=== PATIENT | male | born 1950 | race Caucasian/White ===

== ENCOUNTER 2021-09-08 10:10 | Emergency (ER) | payer OTHER ==
[~2021-09-08] VITALS: Ht 167.6 cm; Wt 66.2 kg
[2021-09-08] MEDS ORDERED: UROXATRAL10 MG PO (10:20)
== END 2021-09-08 11:03 | disposition home or self-care (01) ==
LOC: ER 10:10
DX: S81.811A Laceration without foreign body, right lower leg, initial encounter (principal); W54.0XXA Bitten by dog, initial encounter; Y93.9 Activity, unspecified; Y92.9 Unspecified place or not applicable; Y99.9 Unspecified external cause status